=== PATIENT | female | born 1955 | race Caucasian/White ===

== ENCOUNTER 2023-11-02 07:00 | Outpatient (NON) | payer MEDICARE, SELFPAY | END 2023-11-02 07:01 | disposition home or self-care (01) | PROVIDERS: PCP Internal Medicine; Visit Provider Nurse Practitioner | DX: L57.8 Other skin changes due to chronic exposure to nonionizing radiation (principal); L73.9 Follicular disorder, unspecified | CPT/HCPCS: 88304 ==